=== PATIENT | female | born 1935 | race African-American/Black ===

== ENCOUNTER 2018-06-30 01:31 | Emergency (ER) | payer OTHER ==
[~2018-06-30] VITALS: Ht 157.5 cm; Wt 54.0 kg
[2018-06-30] MEDS ORDERED: FUROSEMIDE 40MG/4ML VIAL IV ONE (01:45)
[2018-06-30 02:30] LABS: BASOPHILS % 1.7 % (0.0-2.0); EOSINOPHILS % 2.5 % (0.0-5.0); LYMPHOCYTES % 19.4 % (20.0-50.0); MEAN CORPUSCULAR HEMOGLOBIN 32.2 pg (28.0-32.0); MEAN CORPUSCULAR VOLUME 96.4 fL (81.0-99.0); MEAN PLATELET VOLUME 9.1 fl (7.4-10.4); MONOCYTES % 12.1 % (2.0-8.0); NEUTROPHILS % 64.3 % (40.0-76.0); PLATELET 149 x1000/uL (130-400); RED BLOOD CELL COUNT 3.73 mill/uL (4.2-5.4); RED CELL DISTRIBUTION WIDTH 15.3 % (11.6-14.6)
[2018-06-30 02:35] LABS: CHLORIDE 109 mEq/L (98-107)
[2018-06-30] MEDS ORDERED: ASPIRIN 325MG EC TABLET PO NR (03:15)
[2018-06-30 08:22] VITALS: BP 173/91
== END 2018-06-30 08:45 | disposition short-term general hospital (02) ==
LOC: ER 01:31 → CANBEDREQ 15:23
DX: I11.0 Hypertensive heart disease with heart failure (principal); I50.9 Heart failure, unspecified; R79.89 Other specified abnormal findings of blood chemistry; H40.9 Unspecified glaucoma; Z88.2 Allergy status to sulfonamides; Z98.890 Other specified postprocedural states
CPT/HCPCS: 36415; 71045; 80053; 83880; 84484; 85025; 93005; 94660; 96374; 99285; J1940

== ENCOUNTER 2019-02-21 08:51 | Emergency (ER) | payer MEDICARE, OTHER ==
[~2019-02-21] VITALS: Ht 167.6 cm; Wt 59.0 kg
[2019-02-21] MEDS ORDERED: IBUPROFEN 400MG TABLET PO ONE (09:30)
[2019-02-21] MEDS ORDERED: ACETAMINOPHEN 325MG TABLET PO ONE (09:30)
[2019-02-21 11:49] LABS: BASOPHILS % 1.8 % (0.0-2.0); EOSINOPHILS % 1.8 % (0.0-5.0); HEMATOCRIT. 37.8 % (36.0-48.0); HEMOGLOBIN. 12.7 g/dL (12.0-16.0); LYMPHOCYTES % 19.3 % (20.0-50.0); MEAN CORPUSCULAR HEMOGLOBIN 32.8 pg (28.0-32.0); MEAN CORPUSCULAR VOLUME 97.6 fL (81.0-99.0); MEAN PLATELET VOLUME 9.4 fl (7.4-10.4); NEUTROPHILS % 65.1 % (40.0-76.0); PLATELET 169 x1000/uL (130-400); RED BLOOD CELL COUNT 3.87 mill/uL (4.2-5.4); RED CELL DISTRIBUTION WIDTH 15.1 % (11.6-14.6)
[2019-02-21 11:50] LABS: CHLORIDE 104 mEq/L (98-107)
[2019-02-21 11:53] LABS: PARTIAL THROMBOPLASTIN TIME 27.1 sec (23.4-31.0)
[2019-02-21] MEDS ORDERED: MORPHINE SULFATE 4 MG/ML CPJ (NOT FOR IM USE) IV NR (12:00)
[2019-02-21 12:30] LABS: INR 1.1; PROTHROMBIN TIME 11.1 sec (9.6-11.0)
[2019-02-21 13:44] VITALS: BP 174/73
== END 2019-02-21 13:57 | disposition short-term general hospital (02) ==
LOC: ER 08:51
DX: S72.011A Unspecified intracapsular fracture of right femur, initial encounter for closed fracture (principal); W01.0XXA Fall on same level from slipping, tripping and stumbling without subsequent striking against object, initial encounter; Y93.89 Activity, other specified; Y92.89 Other specified places as the place of occurrence of the external cause; Y99.8 Other external cause status; I13.2 Hypertensive heart and chronic kidney disease with heart failure and with stage 5 chronic kidney disease, or end stage renal disease; N18.6 End stage renal disease; Z99.2 Dependence on renal dialysis; Z90.710 Acquired absence of both cervix and uterus; I25.2 Old myocardial infarction; H40.9 Unspecified glaucoma; Z95.5 Presence of coronary angioplasty implant and graft; Z88.2 Allergy status to sulfonamides
CPT/HCPCS: 36415; 73502; 73552; 86850; 86900; 93005; 99285

== ENCOUNTER 2019-04-15 07:19 | Emergency (ER) | payer OTHER ==
[~2019-04-15] VITALS: Ht 160 cm; Wt 58.0 kg
[2019-04-15 08:17] LABS: BASOPHILS % 0.9 % (0.0-2.0); EOSINOPHILS % 0.7 % (0.0-5.0); HEMATOCRIT. 40.9 % (36.0-48.0); HEMOGLOBIN. 13.5 g/dL (12.0-16.0); LYMPHOCYTES % 20.5 % (20.0-50.0); MEAN CORPUSCULAR HEMOGLOBIN 32.5 pg (28.0-32.0); MEAN CORPUSCULAR VOLUME 98.4 fL (81.0-99.0); MEAN PLATELET VOLUME 10.7 fl (7.4-10.4); MONOCYTES % 10.4 % (2.0-8.0); NEUTROPHILS % 67.5 % (40.0-76.0); PLATELET 148 x1000/uL (130-400); RED BLOOD CELL COUNT 4.16 mill/uL (4.2-5.4); RED CELL DISTRIBUTION WIDTH 15.9 % (11.6-14.6)
[2019-04-15 08:21] LABS: CHLORIDE 100 mEq/L (98-107)
[2019-04-15] MEDS ORDERED: ALBUTEROL (0.083%) 2.5MG/3ML NEB HHN ONE (09:45)
[2019-04-15] MEDS ORDERED: CEFTRIAXONE 1 G PREMIX 50 ML IV ONE (09:45)
[2019-04-15] MEDS ORDERED: AZITHROMYCIN 500 MG in DEXT 5% WATER 250 ML IV SCH (09:45)
[2019-04-15 11:30] VITALS: BP 139/87
== END 2019-04-15 11:20 | disposition short-term general hospital (02) ==
LOC: ER 07:19
DX: J18.8 Other pneumonia, unspecified organism (principal); I11.0 Hypertensive heart disease with heart failure; I50.9 Heart failure, unspecified; Z99.2 Dependence on renal dialysis; Z90.710 Acquired absence of both cervix and uterus; Z95.820 Peripheral vascular angioplasty status with implants and grafts; Z88.2 Allergy status to sulfonamides
CPT/HCPCS: 36415; 71046; 80053; 83605; 83880; 84484; 85025; 93005; 94640; 96365; 96368; 99284; J0456; J0696; J7060; J7611; Z7610

== ENCOUNTER 2019-04-28 18:38 | Emergency (ER) | payer OTHER ==
[~2019-04-28] VITALS: Ht 162.6 cm; Wt 57.0 kg
[2019-04-28] MEDS: IPRATROPIUM/ALBUTEROL 0.5-3(2.5)MG/3ML NEB HHN ONE ×2 (19:18→19:35)
[2019-04-28 19:37] LABS: BASOPHILS % 1.6 % (0.0-2.0); EOSINOPHILS % 1.8 % (0.0-5.0); HEMATOCRIT. 35.9 % (36.0-48.0); HEMOGLOBIN. 11.9 g/dL (12.0-16.0); LYMPHOCYTES % 20.8 % (20.0-50.0); MEAN CORPUSCULAR HEMOGLOBIN 31.8 pg (28.0-32.0); MEAN CORPUSCULAR VOLUME 95.5 fL (81.0-99.0); MEAN PLATELET VOLUME 10.1 fl (7.4-10.4); MONOCYTES % 9.2 % (2.0-8.0); NEUTROPHILS % 66.6 % (40.0-76.0); PLATELET 201 x1000/uL (130-400); RED BLOOD CELL COUNT 3.76 mill/uL (4.2-5.4); RED CELL DISTRIBUTION WIDTH 15.2 % (11.6-14.6)
[2019-04-28 19:41] LABS: CHLORIDE 97 mEq/L (98-107)
[2019-04-28 19:44] LABS: INR 1.1; PARTIAL THROMBOPLASTIN TIME 29.5 sec (23.4-31.0); PROTHROMBIN TIME 11.4 sec (9.6-11.0)
[2019-04-29 00:07] VITALS: BP 154/100
== END 2019-04-29 00:07 | disposition short-term general hospital (02) ==
LOC: ER 18:38 → CANBEDREQ 04-29 01:35
DX: I13.2 Hypertensive heart and chronic kidney disease with heart failure and with stage 5 chronic kidney disease, or end stage renal disease (principal); N18.6 End stage renal disease; I50.9 Heart failure, unspecified; Z99.2 Dependence on renal dialysis
CPT/HCPCS: 36415; 71045; 80053; 83605; 83690; 83880; 84484; 85025; 85610; 85730; 87040; 93005; 94640; 99285; J7620; Z7610

== ENCOUNTER 2019-05-01 00:42 | Emergency (ER) | payer OTHER ==
[~2019-05-01] VITALS: Ht 165.1 cm; Wt 50.0 kg
[2019-05-01] MEDS ORDERED: ALBUTEROL (0.083%) 2.5MG/3ML NEB HHN STA (01:43)
[2019-05-01] MEDS ORDERED: IPRATROPIUM BROMIDE (0.02%) 0.5MG/2.5ML NEB HHN STA (01:43)
[2019-05-01 02:29] LABS: BASOPHILS % 0.7 % (0.0-2.0); EOSINOPHILS % 4.6 % (0.0-5.0); HEMATOCRIT. 39.8 % (36.0-48.0); LYMPHOCYTES % 31.3 % (20.0-50.0); MEAN CORPUSCULAR HEMOGLOBIN 31.5 pg (28.0-32.0); MEAN CORPUSCULAR VOLUME 96.4 fL (81.0-99.0); MEAN PLATELET VOLUME 10.8 fl (7.4-10.4); MONOCYTES % 11.2 % (2.0-8.0); NEUTROPHILS % 52.2 % (40.0-76.0); PLATELET 210 x1000/uL (130-400); RED BLOOD CELL COUNT 4.13 mill/uL (4.2-5.4); RED CELL DISTRIBUTION WIDTH 15.4 % (11.6-14.6)
[2019-05-01 03:11] LABS: CHLORIDE 101 mEq/L (98-107)
[2019-05-01 05:58] VITALS: BP 153/86
== END 2019-05-01 06:10 | disposition short-term general hospital (02) ==
LOC: ER 00:42 → CANBEDREQ 06:14
DX: R06.03 Acute respiratory distress (principal); J44.9 Chronic obstructive pulmonary disease, unspecified; N18.6 End stage renal disease; I45.10 Unspecified right bundle-branch block; Z99.2 Dependence on renal dialysis
CPT/HCPCS: 36415; 71045; 83880; 84484; 93005; 94660; 99291

== ENCOUNTER 2021-04-09 23:15 | Emergency (ER) | payer OTHER ==
[~2021-04-09] VITALS: Ht 162.6 cm; Wt 56.0 kg
[2021-04-10] MEDS ORDERED: ONDANSETRON HCL 4MG/2ML INJ IV ONE
[2021-04-10 00:34] LABS: BASOPHILS % 0.4 % (0.0-2.0); EOSINOPHILS % 2.8 % (0.0-5.0); HEMATOCRIT. 35.2 % (36.0-48.0); HEMOGLOBIN. 12.2 g/dL (12.0-16.0); LYMPHOCYTES % 22.4 % (20.0-50.0); MEAN CORPUSCULAR HEMOGLOBIN 32.5 pg (28.0-32.0); MEAN CORPUSCULAR VOLUME 94.1 fL (81.0-99.0); MONOCYTES % 11.8 % (2.0-8.0); NEUTROPHILS % 62.6 % (40.0-76.0); PLATELET 165 x1000/uL (130-400); RED BLOOD CELL COUNT 3.74 mill/uL (4.2-5.4)
[2021-04-10 00:43] LABS: CHLORIDE 106 mEq/L (98-107)
[2021-04-10 01:13] LABS: INR 1.1; PROTHROMBIN TIME 11.5 sec (9.6-11.0)
[2021-04-10 05:58] LABS: CLARITY URINE CLOUDY (CLEAR); COLOR URINE YELLOW (YELLOW); KETONES URINE NEGATIVE (NEGATIVE); LEUKOCYTE ESTERASE URINE 3+ (NEGATIVE); NITRITE URINE NEGATIVE (NEGATIVE); OCCULT BLOOD URINE TRACE (NEGATIVE); PROTEIN URINE 2+ (NEGATIVE); UROBILINOGEN URINE 0.2 E.U./dL (0.2-1.0)
[2021-04-10 06:00] VITALS: BP 177/96
== END 2021-04-10 09:06 | disposition short-term general hospital (02) ==
LOC: ER 23:47
DX: R06.00 Dyspnea, unspecified (principal); K85.90 Acute pancreatitis without necrosis or infection, unspecified; J44.9 Chronic obstructive pulmonary disease, unspecified; Z90.710 Acquired absence of both cervix and uterus
CPT/HCPCS: 36415; 71045; 74176; 80053; 81003; 83690; 83880; 84484; 85025; 85610; 87086; 93005; 96374; 99285; J2405

== ENCOUNTER 2022-11-26 06:45 | Emergency (ER) | payer OTHER ==
[~2022-11-26] VITALS: Ht 160 cm; Wt 74.0 kg
[2022-11-26] MEDS ORDERED: MAGNESIUM/ALUMINUM HYDROXIDE/SIMETHICONE 30ML UDC PO NR (07:30)
[2022-11-26 07:40] LABS: HEMATOCRIT. 35.3 % (36.0-48.0); HEMOGLOBIN. 11.9 g/dL (12.0-16.0); MEAN CORPUSCULAR HEMOGLOBIN 33.3 pg (28.0-32.0); MEAN CORPUSCULAR VOLUME 98.5 fL (81.0-99.0); MEAN PLATELET VOLUME 10.8 fl (7.4-10.4); PLATELET 130 x1000/uL (130-400); RED BLOOD CELL COUNT 3.58 mill/uL (4.2-5.4); RED CELL DISTRIBUTION WIDTH 15.4 % (11.6-14.6)
[2022-11-26 07:50] LABS: INR 1.2
[2022-11-26 07:51] LABS: CHLORIDE 104 mEq/L (98-107)
[2022-11-26 08:09] LABS: PLATELET ESTIMATE NORMAL
[2022-11-26] MEDS ORDERED: ONDA4TAB50 MT (10:42)
[2022-11-26 10:56] VITALS: BP 150/80
== END 2022-11-26 10:58 | disposition home or self-care (01) ==
LOC: ER 06:45
DX: I12.0 Hypertensive chronic kidney disease with stage 5 chronic kidney disease or end stage renal disease (principal); N18.6 End stage renal disease; R11.2 Nausea with vomiting, unspecified; I25.2 Old myocardial infarction; Z88.2 Allergy status to sulfonamides
CPT/HCPCS: 36415; 76700; 80053; 85025; 99284

== ENCOUNTER 2023-04-07 14:51 | Emergency (ER) | payer MEDICARE, OTHER ==
[~2023-04-07] VITALS: Ht 157.5 cm; Wt 55.0 kg
[~2023-04-07 14:51] MED LIST: ONDA4TAB50 MT
[2023-04-07 16:31] LABS: BASOPHILS % 1.1 % (0.0-2.0); EOSINOPHILS % 0.6 % (0.0-5.0); HEMATOCRIT. 31.8 % (36.0-48.0); HEMOGLOBIN. 10.4 g/dL (12.0-16.0); LYMPHOCYTES % 19.4 % (20.0-50.0); MEAN CORPUSCULAR HEMOGLOBIN 31.3 pg (28.0-32.0); MEAN CORPUSCULAR HGB CONC 32.8 g/dL (31.0-37.0); MEAN CORPUSCULAR VOLUME 95.4 fL (81.0-99.0); MEAN PLATELET VOLUME 10.3 fl (7.4-10.4); MONOCYTES % 14.8 % (2.0-8.0); NEUTROPHILS % 64.1 % (40.0-76.0); PLATELET 150 x1000/uL (130-400); RED BLOOD CELL COUNT 3.33 mill/uL (4.2-5.4); RED CELL DISTRIBUTION WIDTH 15.7 % (11.6-14.6); WHITE BLOOD COUNT 5.6 x1000/uL (4.5-11.0)
[2023-04-07 16:35] LABS: CHLORIDE 105 mEq/L (98-107); INDEX HEMOLYSI 1 (1-3); INDEX ICTERIC 1 (1-4); INDEX LIPEMIC 1 (1-3); POTASSIUM 4.4 mEq/L (3.5-5.1); SODIUM 139 mEq/L (136-145)
[2023-04-07 16:44] LABS: ALANINE AMINOTRANSFERASE 80 IU/L (13-61); ALBUMIN 2.9 g/dL (3.4-5.0); ASPARTATE AMINOTRANSFERASE 62 IU/L (15-37); BILIRUBIN TOTAL 0.6 mg/dL (0.1-1.0); CARBON DIOXIDE 25 mEq/L (21-32); GLUCOSE 135 mg/dL (70-105); PROTEIN TOTAL 6.8 g/dL (6.0-8.3); UREA NITROGEN BLOOD 29 mg/dL (7-21)
[2023-04-07] MEDS ORDERED: IPRATROPIUM/ALBUTEROL 0.5-3(2.5)MG/3ML NEB HHN NR (16:51)
[2023-04-07 17:04] LABS: NT PRO B-TYPE NATRIURETIC PEP > 35000 pg/mL (5-125)
[2023-04-07 17:05] LABS: CREATININE 5.3 mg/dL (0.6-1.3); TROPONIN I HIGH SENSITIVITY 92 ng/L (<54)
[2023-04-07] MEDS ORDERED: ASPIRIN 325MG EC TABLET PO NR (17:15)
[2023-04-07 17:20] VITALS: PULSE 97; RESP 18; O2SAT 98
[2023-04-07] MEDS ORDERED: CYPR4TAB43 PO (17:21)
[2023-04-07] MEDS ORDERED: CINA60TA3 PO (17:21)
[2023-04-07] MEDS ORDERED: OMEP20CA14 PO (17:21)
[2023-04-07] MEDS ORDERED: CARV3.1242 PO (17:21)
[2023-04-07] MEDS ORDERED: ATOR40TA70 PO (17:21)
[2023-04-07 18:00] VITALS: TEMP 98.3
[2023-04-07 18:34] LABS: TROPONIN I HIGH SENSITIVITY 97 ng/L (<54)
[2023-04-07 21:59] LABS: TROPONIN I HIGH SENSITIVITY 99 ng/L (<54)
[2023-04-08 01:30] VITALS: BP 129/79; PULSE 92; RESP 22
== END 2023-04-08 01:55 | disposition short-term general hospital (02) ==
LOC: ER 14:51
DX: I21.4 Non-ST elevation (NSTEMI) myocardial infarction (principal); I13.11 Hypertensive heart and chronic kidney disease without heart failure, with stage 5 chronic kidney disease, or end stage renal disease; N18.6 End stage renal disease; Z99.2 Dependence on renal dialysis; Z90.710 Acquired absence of both cervix and uterus; Z98.890 Other specified postprocedural states; Z88.2 Allergy status to sulfonamides
CPT/HCPCS: 36415; 71045; 80053; 83880; 84484; 85025; 93005; 94640; 99285

== ENCOUNTER 2023-05-13 06:49 | Emergency (ER) | payer MEDICARE, OTHER ==
[~2023-05-13] VITALS: Ht 152.4 cm; Wt 46.0 kg
[~2023-05-13 06:49] MED LIST changes: +APIX5TAB PO; +ATOR40TA70 PO; +CARV3.1242 PO; +CINA60TA3 PO; +CYPR4TAB43 PO; +OMEP20CA14 PO
[2023-05-13] MEDS ORDERED: IPRATROPIUM BROMIDE (0.02%) 0.5MG/2.5ML NEB HHN STA (06:59)
[2023-05-13] MEDS ORDERED: ALBUTEROL (0.083%) 2.5MG/3ML NEB HHN STA (06:59)
[2023-05-13] MEDS ORDERED: NITROGLYCERIN OINT 1GM/INCH UDPKT TD ONE (07:00)
[2023-05-13 08:21] LABS: BASOPHILS % 1.1 % (0.0-2.0); DIFFERENTIAL COMMENT 0; EOSINOPHILS % 0.9 % (0.0-5.0); HEMATOCRIT. 35.4 % (36.0-48.0); HEMOGLOBIN. 11.3 g/dL (12.0-16.0); LYMPHOCYTES % 16.5 % (20.0-50.0); MEAN CORPUSCULAR HEMOGLOBIN 32.3 pg (28.0-32.0); MEAN CORPUSCULAR HGB CONC 31.9 g/dL (31.0-37.0); MEAN CORPUSCULAR VOLUME 101.3 fL (81.0-99.0); MEAN PLATELET VOLUME 10.4 fl (7.4-10.4); MONOCYTES % 12.9 % (2.0-8.0); NEUTROPHILS % 68.6 % (40.0-76.0); PLATELET 96 x1000/uL (130-400); RED CELL DISTRIBUTION WIDTH 18.3 % (11.6-14.6); WHITE BLOOD COUNT 5.7 x1000/uL (4.5-11.0)
[2023-05-13 08:30] VITALS: PULSE 87; RESP 20; O2SAT 97
[2023-05-13] MEDS ORDERED: IPRATROPIUM BROMIDE (0.02%) 0.5MG/2.5ML NEB ONE (08:41)
[2023-05-13] MEDS ORDERED: ALBUTEROL (0.083%) 2.5MG/3ML NEB ONE (08:41)
[2023-05-13 08:43] LABS: ALANINE AMINOTRANSFERASE 9 IU/L (10-49); ALBUMIN 3.5 g/dL (3.2-4.8); ASPARTATE AMINOTRANSFERASE 19 IU/L (<34); BILIRUBIN TOTAL 0.4 mg/dL (0.1-1.0); CALCIUM 8.7 mg/dL (8.7-10.4); CARBON DIOXIDE 26 mEq/L (21-32); CHLORIDE 100 mEq/L (98-107); GLUCOSE 98 mg/dL (70-105); POTASSIUM 4.1 mEq/L (3.5-5.1); SODIUM 137 mEq/L (136-145); UREA NITROGEN BLOOD 21 mg/dL (9-23)
[2023-05-13 08:44] LABS: CREATININE 5.7 mg/dL (0.6-1.0)
[2023-05-13 08:45] LABS: TROPONIN I HIGH SENSITIVITY 36 ng/L (3.0-34)
[2023-05-13] MEDS ORDERED: IPRATROPIUM BROMIDE (0.02%) 0.5MG/2.5ML NEB HHN NR (09:00)
[2023-05-13] MEDS ORDERED: ALBUTEROL (0.083%) 2.5MG/3ML NEB HHN NR (09:00)
[2023-05-13 11:41] LABS: TROPONIN I HIGH SENSITIVITY 37 ng/L (3.0-34)
[2023-05-13 12:50] VITALS: BP 145/76; PULSE 85; RESP 18; TEMP 98
== END 2023-05-13 12:54 | disposition home or self-care (01) ==
LOC: ER 06:49
DX: R06.02 Shortness of breath (principal); I25.2 Old myocardial infarction; I10 Essential (primary) hypertension; Z20.822 Contact with and (suspected) exposure to COVID-19; Z88.2 Allergy status to sulfonamides
CPT/HCPCS: 99285; 71045; 87426; 80053; 85025; 84484; 87804 ×2; 36415; 94640; 93005; C9803

== ENCOUNTER 2024-06-25 16:05 | Inpatient (IN) | payer MEDICARE, OTHER ==
[~2024-06-25] VITALS: Ht 157.5 cm; Wt 53.5 kg
[2024-06-25 16:10] VITALS: O2SAT 98
[2024-06-25] MEDS ORDERED: NITROGLYCERIN 0.4MG TABLET SL SL PRN (16:30)
[2024-06-25] MEDS ORDERED: ASPIRIN 81MG TABLET PO ONE (16:30)
[2024-06-25 16:59] LABS: CHLORIDE 105 mEq/L (98-107); POTASSIUM 3.9 mEq/L (3.5-5.1)
[2024-06-25 17:00] LABS: CARBON DIOXIDE 27 mEq/L (21-32); SODIUM 139 mEq/L (136-145)
[2024-06-25 17:01] LABS: CALCIUM 9.9 mg/dL (8.7-10.4)
[2024-06-25 17:05] LABS: EOSINOPHILS % 2.8 % (0.0-5.0); HEMATOCRIT. 32.6 % (36.0-48.0); HEMOGLOBIN. 10.7 g/dL (12.0-16.0); MEAN CORPUSCULAR HEMOGLOBIN 32.2 pg (28.0-32.0); MEAN CORPUSCULAR HGB CONC 32.9 g/dL (31.0-37.0); MEAN PLATELET VOLUME 10.5 fl (7.4-10.4); MONOCYTES % 17.4 % (2.0-8.0); NEUTROPHILS % 58.8 % (40.0-76.0); PLATELET 142 x1000/uL (130-400); RED BLOOD CELL COUNT 3.33 mill/uL (4.2-5.4); RED CELL DISTRIBUTION WIDTH 14.7 % (11.6-14.6)
[2024-06-25 17:06] LABS: GLUCOSE 94 mg/dL (70-105); UREA NITROGEN BLOOD 38 mg/dL (9-23)
[2024-06-25 17:07] LABS: TROPONIN I HIGH SENSITIVITY 26 ng/L (3.0-34)
[2024-06-25 17:09] LABS: DIFFERENTIAL COMMENT 1
[2024-06-25 17:14] LABS: CREATININE 5.2 mg/dL (0.6-1.0)
[2024-06-25 19:25] LABS: TROPONIN I HIGH SENSITIVITY 29 ng/L (3.0-34)
[2024-06-25] MEDS: ASPIRIN 81MG TABLET PO NR (20:44)
[2024-06-26] VITALS (11 sets, daily range): BP systolic 115–165; BP diastolic 60–82; PULSE 69–77; RESP 18–20; TEMP 36.114–36.72516; O2SAT 98–99
[2024-06-26] MEDS ORDERED: CLONIDINE 0.1MG TABLET PO PRN (02:30)
[2024-06-26] MEDS ORDERED: ACETAMINOPHEN 325MG TABLET PO PRN (02:30)
[2024-06-26] MEDS: HYDRALAZINE HCL 50MG TABLET PO SCH (09:22)
[2024-06-26 10:37] LABS: BASOPHILS % 1.1 % (0.0-2.0); EOSINOPHILS % 3.3 % (0.0-5.0); HEMATOCRIT. 36.9 % (36.0-48.0); HEMOGLOBIN. 11.8 g/dL (12.0-16.0); LYMPHOCYTES % 20.5 % (20.0-50.0); MEAN CORPUSCULAR HEMOGLOBIN 32.3 pg (28.0-32.0); MONOCYTES % 14.2 % (2.0-8.0); NEUTROPHILS % 60.9 % (40.0-76.0); RED BLOOD CELL COUNT 3.65 mill/uL (4.2-5.4); RED CELL DISTRIBUTION WIDTH 15.8 % (11.6-14.6); WHITE BLOOD COUNT 4.2 x1000/uL (4.5-11.0)
[2024-06-26 10:45] LABS: DIFFERENTIAL COMMENT 1
[2024-06-26 10:46] LABS: ADD RBC MORPHOLOGY YES
[2024-06-26 10:54] LABS: POTASSIUM 4.2 mEq/L (3.5-5.1)
[2024-06-26 11:08] LABS: CREATININE 6.2 mg/dL (0.6-1.0)
[2024-06-26 12:49] LABS: HEPATITIS B SURFACE ANTIGEN NEGATIVE (Negative)
[2024-06-26 13:09] LABS: HEPATITIS A AB IGM NEGATIVE (Negative)
[2024-06-26 13:10] LABS: HEPATITIS B CORE AB IGM NEGATIVE (Negative); HEPATITIS C AB NON REACTIVE (Neg) (Negative)
[2024-06-26] MEDS ORDERED: LEVO250T74 MT (14:05)
[2024-06-26 15:31] LABS: PLATELET ESTIMATE SLIGHTLY DECREASED
[2024-06-26 15:38] LABS: MEAN PLATELET VOLUME 10.9 fl (7.4-10.4); PLATELET 99 x1000/uL (130-400)
[2024-06-26] MEDS: AZITHROMYCIN 250 MG TABLET PO SCH (15:38)
[2024-06-26] MEDS: AMLODIPINE 10MG TABLET PO SCH (15:38)
[2024-06-26] MEDS: CEFTRIAXONE 1GM/50ML 50 ML IV SCH (17:40)
[2024-06-27] VITALS: BP 127/61; PULSE 76; RESP 18; TEMP 36.83628; O2SAT 98
[2024-06-27 04:00] VITALS: BP 157/70; PULSE 77; RESP 20; TEMP 37.2252; TEMP 37.22520; O2SAT 98
[2024-06-27 11:33] VITALS: BP 132/66; PULSE 77; TEMP 98.7
== END 2024-06-27 12:30 | disposition home or self-care (01) | DRG 190 ==
LOC: ER 16:05 → 7WST 19:33 → EDBEDREQ 19:39
PROVIDERS: ADMIT Internal Medicine; ATTEND Internal Medicine
DX: J44.0 Chronic obstructive pulmonary disease with (acute) lower respiratory infection (principal); J18.9 Pneumonia, unspecified organism; N18.6 End stage renal disease; I12.0 Hypertensive chronic kidney disease with stage 5 chronic kidney disease or end stage renal disease; N25.81 Secondary hyperparathyroidism of renal origin; D64.9 Anemia, unspecified; I25.10 Atherosclerotic heart disease of native coronary artery without angina pectoris; E78.5 Hyperlipidemia, unspecified; Z99.2 Dependence on renal dialysis; Z88.2 Allergy status to sulfonamides; Z90.710 Acquired absence of both cervix and uterus; Z95.5 Presence of coronary angioplasty implant and graft; I25.2 Old myocardial infarction
CPT/HCPCS: 36415; 71045; 76770; 80048; 83880; 84484; 85025; 86705; 86709; 87340; 90935; 93005; 99285; J0696

== ENCOUNTER 2025-02-19 10:14 | Inpatient (IN) | payer MEDICARE, OTHER ==
[~2025-02-19] VITALS: Ht 157.5 cm; Wt 74.6 kg
[~2025-02-19 10:14] MED LIST changes: +LEVO250T74 MT
[2025-02-19 10:16] VITALS: O2SAT 98
[2025-02-19 10:41] LABS: BASOPHILS % 1.2 % (0.0-2.0); EOSINOPHILS % 1.7 % (0.0-5.0); HEMATOCRIT. 36.3 % (36.0-48.0); HEMOGLOBIN. 11.7 g/dL (12.0-16.0); LYMPHOCYTES % 17.8 % (20.0-50.0); MEAN PLATELET VOLUME 10.2 fl (7.4-10.4); MONOCYTES % 11.7 % (2.0-8.0); NEUTROPHILS % 67.6 % (40.0-76.0); PLATELET 153 x1000/uL (130-400); RED BLOOD CELL COUNT 3.82 mill/uL (4.2-5.4); RED CELL DISTRIBUTION WIDTH 15.3 % (11.6-14.6)
[2025-02-19 10:55] LABS: UREA NITROGEN BLOOD 38 mg/dL (9-23)
[2025-02-19 10:57] LABS: ASPARTATE AMINOTRANSFERASE 22 IU/L (<34); BILIRUBIN DIRECT 0.1 mg/dL (<=3.0); PHOSPHORUS 3.1 mg/dL (2.5-4.9)
[2025-02-19 10:58] LABS: BILIRUBIN TOTAL 0.4 mg/dL (0.1-1.0); PROTEIN TOTAL 7.2 g/dL (6.0-8.3)
[2025-02-19 11:11] LABS: CREATININE 6.9 mg/dL (0.6-1.0)
[2025-02-19] MEDS ORDERED: ONDANSETRON HCL 4MG/2ML INJ IV PRN (11:45)
[2025-02-19] MEDS ORDERED: CLONIDINE 0.1MG TABLET PO PRN (11:45)
[2025-02-19] MEDS ORDERED: ACETAMINOPHEN 325MG TABLET PO PRN ×2 (11:45)
[2025-02-19] MEDS ORDERED: IPRATROPIUM/ALBUTEROL 0.5-3(2.5)MG/3ML NEB HHN PRN (11:45)
[2025-02-19] MEDS ORDERED: DIPHENHYDRAMINE 50MG/ML VIAL IV PRN (11:45)
[2025-02-19] MEDS ORDERED: GUAIFENESIN 200MG/10ML SUGAR FREE UDC PO PRN (11:45)
[2025-02-19] MEDS ORDERED: DOCUSATE SODIUM 100MG CAPSULE PO PRN (11:45)
[2025-02-19 12:35] LABS: INR 1.0
[2025-02-19 13:16] LABS: HEPATITIS A AB IGM NEGATIVE (Negative)
[2025-02-19 13:17] LABS: HEPATITIS B CORE AB IGM NEGATIVE (Negative); HEPATITIS C AB NON REACTIVE (Neg) (Negative)
[2025-02-19] MEDS ORDERED: ENOXAPARIN 60MG/0.6ML SYR SUBCUT SCH (14:00)
[2025-02-19 15:00] VITALS: BP 140/54; PULSE 60; RESP 20; TEMP 35.9732
[2025-02-19 17:58] LABS: CREATINE KINASE MB FRACTION < 0.5 ng/mL (0.5-3.6); TROPONIN I HIGH SENSITIVITY 17 ng/L (3.0-34)
[2025-02-19] MEDS ORDERED: ASPI-1497 PO (18:17)
[2025-02-19 20:00] VITALS: BP 110/56; PULSE 84; RESP 18; TEMP 36.4; O2SAT 97
[2025-02-19] MEDS: CARVEDILOL 3.125 MG TABLET PO SCH (21:56)
[2025-02-19] MEDS: ATORVASTATIN CALCIUM 40MG TABLET PO SCH (21:57)
[2025-02-19] MEDS: FAMOTIDINE 20MG TABLET PO SCH (21:57)
[2025-02-19 23:49] LABS: CREATINE KINASE MB FRACTION < 0.5 ng/mL (0.5-3.6)
[2025-02-19 23:50] LABS: TROPONIN I HIGH SENSITIVITY 19 ng/L (3.0-34)
[2025-02-20] VITALS (14 sets, daily range): BP systolic 114–138; BP diastolic 51–73; PULSE 65–75; RESP 14–20; TEMP 36.114–36.8; O2SAT 98–100
[2025-02-20 06:24] LABS: TRIGLYCERIDE 155 mg/dL (0-150); UREA NITROGEN BLOOD 52 mg/dL (9-23)
[2025-02-20 06:25] LABS: LDL CHOLESTEROL 64 mg/dL (5-100)
[2025-02-20 06:26] LABS: PHOSPHORUS 3.4 mg/dL (2.5-4.9)
[2025-02-20 06:27] LABS: CREATININE 7.9 mg/dL (0.6-1.0)
[2025-02-20 06:30] LABS: T4 FREE 0.99 ng/dL (0.89-1.76)
[2025-02-20 06:35] LABS: PLATELET 127 x1000/uL (130-400); RED BLOOD CELL COUNT 3.57 mill/uL (4.2-5.4); RED CELL DISTRIBUTION WIDTH 15.3 % (11.6-14.6)
[2025-02-20] MEDS: ENOXAPARIN 60MG/0.6ML SYR SUBCUT SCH (06:52)
[2025-02-21] VITALS: BP 127/66; PULSE 65; RESP 18; TEMP 36.4; O2SAT 99
[2025-02-21 04:00] VITALS: BP 137/61; PULSE 70; RESP 18; TEMP 36.4; O2SAT 98
[2025-02-21 08:00] VITALS: BP 135/59; PULSE 71; RESP 18; TEMP 37.1; O2SAT 97
[2025-02-21 08:10] LABS: UREA NITROGEN BLOOD 32.0 mg/dL (9-23)
[2025-02-21 08:17] LABS: PLATELET 128 x1000/uL (130-400); RED BLOOD CELL COUNT 3.61 mill/uL (4.2-5.4); RED CELL DISTRIBUTION WIDTH 15.0 % (11.6-14.6)
[2025-02-21 09:06] LABS: CREATININE 6.8 mg/dL (0.6-1.0)
[2025-02-21] MEDS ORDERED: CARV3.1242 MT (09:07)
[2025-02-21 12:00] VITALS: BP 135/59; PULSE 71; RESP 18; TEMP 37.1; O2SAT 97
[2025-02-21 15:02] VITALS: BP 133/67; PULSE 66; RESP 20; TEMP 98.4
== END 2025-02-21 15:43 | disposition home or self-care (01) | DRG 291 ==
LOC: ER 10:14 → EDBEDREQ 10:40 → 7WST 11:39 → EDBEDREQ 11:41 → EDBEDREQTM 11:41 → EDBEDREQSVC 11:41 → ENRESERV 13:52
PROVIDERS: ADMIT Internal Medicine; ATTEND Internal Medicine
PROC: 5A1D70Z Performance of Urinary Filtration, Intermittent, Less than 6 Hours Per Day (ICD-10-PCS; principal; 2025-02-20)
DX: I13.2 Hypertensive heart and chronic kidney disease with heart failure and with stage 5 chronic kidney disease, or end stage renal disease (principal); I50.23 Acute on chronic systolic (congestive) heart failure; J96.01 Acute respiratory failure with hypoxia; N18.6 End stage renal disease; N25.81 Secondary hyperparathyroidism of renal origin; D64.9 Anemia, unspecified; E78.5 Hyperlipidemia, unspecified; I25.10 Atherosclerotic heart disease of native coronary artery without angina pectoris; J44.9 Chronic obstructive pulmonary disease, unspecified; I07.1 Rheumatic tricuspid insufficiency; I34.0 Nonrheumatic mitral (valve) insufficiency; N28.9 Disorder of kidney and ureter, unspecified; Z95.5 Presence of coronary angioplasty implant and graft; Z88.2 Allergy status to sulfonamides; Z91.158 Patient's noncompliance with renal dialysis for other reason; Z90.710 Acquired absence of both cervix and uterus; Z99.2 Dependence on renal dialysis
CPT/HCPCS: 36415; 71045; 80048; 80061; 80076; 82550; 82553; 83605; 83735; 83880; 84100; 84145; 84439; 84443; 84484; 85025; 85027; 85379; 86705; 86709; 87340; 90935; 93005; 93970; 99285; J1650